=== PATIENT | male | born 1995 | race Hispanic/Latino ===

== ENCOUNTER 2019-05-15 12:43 | Day surgery (SDC) | payer OTHER ==
[~2019-05-15 12:43] MED LIST: LACTATED RINGERS 1,000 ML IV SCH; VERSED IV NR
[2019-05-15] MEDS ORDERED: XYLOCAINE MPF 2% ONE (13:00)
[2019-05-15] MEDS ORDERED: SUBLIMAZE IV PRN (13:24)
--- NOTE | 2019-05-15 13:25 | Anesthesia Consultation ---
Anesthesia Consult and Med Hx Date of service: 05/15/19 - Airway Anesthetic Teeth Evaluation: Good ROM Head & Neck: Adequate Mental/Hyoid Distance: Adequate Mallampati Class: Class III Intubation Access Assessment: Possibly Difficult - Pulmonary Exam CTA: Yes - Cardiac Exam Cardiac Exam: RRR - Pre-Operative Health Status ASA Pre-Surgery Classification: ASA1 Proposed Anesthetic Plan: General - Pulmonary Hx Smoking: No Hx Respiratory Symptoms: No - Cardiovascular System Hx Hypertension: No Hx Heart Attack/AMI: No Hx Percutaneous Transluminal Coronary Angioplasty (PTCA): No Hx Cardia Arrhythmia: No - Central Nervous System Hx Seizures: No CVA: No Hx Psychiatric Problems: No - Gastrointestinal Hx Gastroesophageal Reflux Disease: No - Endocrine Hx Renal Disease: No Hx Liver Disease: No Hx Insulin Dependent Diabetes: No Hx Non-Insulin Dependent Diabetes: No Hx Thyroid Disease: No - Hematic Hx Anemia: No - Other Systems Hx Alcohol Use: Yes (OCC. BEER OR WINE) Hx Obesity: No - Additional Comments Anesthesia Medical History Comments: No prior GA. No FHx anesthetic complic ations.
--- NOTE | 2019-05-15 13:25 | Anesthesia Day of Surgery ---
Anesthesia Day of Surgery - Day of Surgery Patient Examined: Yes Patient H&P Reviewed: Yes Patient is NPO: Yes
[2019-05-15] MEDS ORDERED: DIPRIVAN 10 MG/ML IV ONE (13:56)
[2019-05-15] MEDS ORDERED: ANCEF/STERILE WATER 2 GM/20 ML IV NR (14:00)
--- NOTE | 2019-05-15 17:28 | Post Operative Note ---
Date of procedure: 05/15/19 Pre-op diagnosis: painful voiding Post-op diagnosis: same Findings: neg Procedure: cysto rpgs Anesthesia: GETA Surgeon: SKYLA HERNANDEZ Estimated blood loss: none Pathology: none Condition: stable Disposition: PACU
--- NOTE | 2019-05-15 17:29 | Discharge Summary ---
Short Stay Discharge Plan Activity: other Weight Bearing Status: Full Weight Bearing Diet: regular Special Instructions: other (inc fluids ) Follow up with: PRIMARY CARE, [Primary Care Provider] - 7 Days SKYLA HERNANDEZ MD [Staff Physician] - 14 Days
[2019-05-15] MEDS ORDERED: SUBLIMAZE ONE (17:37)
[2019-05-15] MEDS ORDERED: OMNIPAQUE 300 MG/50 ML (CATH LAB) IV ONE (17:50)
--- NOTE | 2019-05-15 18:17 | Operative Report ---
PREOPERATIVE DIAGNOSIS: POSTOPERATIVE DIAGNOSES: Painful and frequent urination with normal bladder. PROCEDURE: Cystoscopy, hydrodistention, retrograde. SURGEON: Chris Renner MD ANESTHESIA: General. FINDINGS: This is a gentleman with painful frequent urination, rule out stricture, rule out interstitial cystitis. DESCRIPTION OF PROCEDURE: The patient was brought to the operating room and placed on the operating table. Following induction of anesthesia, placed in lithotomy position, prepped and draped in usual sterile fashion. Cystourethroscopy showed smooth bladder with no strictures. The urethra was visualized under direct vision. There was no obstruction. Retrograde showed slightly full ureters with no evidence of obstruction, excellent drainage. The calices were preserved. The bladder easily accommodated 1000 mL under anesthesia with no glomerulations or ulcers. The patient tolerated the procedure well and brought to recovery in stable condition. JOB# [id number] PHILOMENA/WANDA
[2019-05-15 19:03] VITALS: BP 114/78
--- NOTE | 2019-05-15 19:07 | Post Anesthesia Evaluation ---
- Post Anesthesia Evaluation Patient Participated: Yes Airway Patent: Yes Stable Respiratory Function: Yes Nausea/Vomiting: No Temp > 96.8F: Yes Pain Manageable: Yes Adequeate Hydration: Yes Anesthesia Complications: No
--- NOTE | 2019-05-15 20:25 | Fluoroscopy Report ---
FL retrograde urography INDICATION: URINARY FREQUENCY. COMPARISON: None available. FINDINGS: Both ureters were cannulated and injected. No stones or filling defects are seen within either ureter or renal collecting system. Several gas bubbles are seen within the left ureter. There is no hydrone phrosis. Fluoroscopy time: 14 seconds. Fluoroscopic images: On. IMPRESSION: 1. Normal bilateral retrograde pyelograms Signer Name: Cali Quinonez MD Signed: 05/15/2019 8:21 PM Workstation Name: [id number]
== END 2019-05-15 12:44 | disposition home or self-care (01) ==
LOC: OR 12:43
PROVIDERS: ATTEND Urology
DX: R35.0 Frequency of micturition (principal); I10 Essential (primary) hypertension; F41.9 Anxiety disorder, unspecified; F32.9 Major depressive disorder, single episode, unspecified; Z72.89 Other problems related to lifestyle
CPT/HCPCS: 52005; 74420; C1758; J2250; J2704; J3010; J7120; Q9967